=== PATIENT | female | born 1950 | race Caucasian/White ===

== ENCOUNTER 2018-09-16 06:50 | Observation (INO) ==
[2018-09-16] MEDS ORDERED: *HR* FentaNYL (PF) 100 MCG/2 ML VIAL ONE ×2 (07:15→09:02)
[2018-09-16] MEDS ORDERED: *HR* Midazolam HCl 2 MG/2 ML VIAL ONE (07:15)
[2018-09-16] MEDS ORDERED: Lidocaine -MPF 2% 2 ML VIAL ONE (07:15)
[2018-09-16] MEDS ORDERED: Ethanol\\Acetic Acid\\Na Ace\\Ben 1,000 ML IRRIG.SOLN IR ONE (07:30)
[2018-09-16] MEDS ORDERED: Albuterol 2.5 MG/3 ML NEBULIZER IH ONE (07:45)
[2018-09-16] MEDS ORDERED: Ringers Solution, Lactated 1,000 ML IVC SCH ×2 (07:45→11:21)
[2018-09-16] MEDS ORDERED: Clindamycin 900 MG/50 ML 900 MG/50 ML IV.SOLN IVPB ONE (07:45)
[2018-09-16] MEDS ORDERED: ROPIVACAINE/PF/NS 0.25% 1 EACH SYRINGE INTRAART ONE (07:53)
[2018-09-16] MEDS ORDERED: Gabapentin 300 MG CAPSULE PO ONE (08:01)
[2018-09-16] MEDS ORDERED: *HR* OxyCODONE ER (12 HR) 20 MG TABLET PO ONE (08:05)
[2018-09-16] MEDS ORDERED: *HR* OxyCODONE ER (12 HR) 10 MG TABLET PO ONE (08:15)
[2018-09-16] MEDS ORDERED: Ropivacaine/PF 0.5% 24.62 ML, EPINEPHrine 0.25 MG, Ketorolac 15 MG, Water for inj. (ste... IR ONE (08:35)
[2018-09-16] MEDS ORDERED: *HR* Propofol 200 MG/20 ML VIAL IVP ONE (08:41)
[2018-09-16] MEDS ORDERED: EPHEDrine 50 MG/ML VIAL ONE (08:52)
[2018-09-16] MEDS ORDERED: Tranexamic Acid 1,000 MG/10 ML VIAL ONE (08:52)
[2018-09-16] MEDS ORDERED: Ondansetron 4 MG/2 ML VIAL ONE (08:58)
[2018-09-16] MEDS ORDERED: Dexamethasone 4 MG/ML VIAL ONE (08:58)
[2018-09-16] MEDS ORDERED: *HR* HYDROMORPHONE 2 MG/ML VIAL ONE (09:17)
[2018-09-16 10:38] LABS: Hematocrit 42.2 % (35.3-44.9); Hemoglobin 13.7 g/dL (11.5-15.4)
[2018-09-16] MEDS ORDERED: Naloxone 0.4 MG/ML INJ IVP PRN (11:21)
[2018-09-16] MEDS ORDERED: Ondansetron 4 MG/2 ML VIAL IVP PRN (11:21)
[2018-09-16] MEDS ORDERED: MOM Conc 10 ML UD.LIQ PO PRN (11:21)
[2018-09-16] MEDS ORDERED: Clindamycin 900 MG/50 ML 900 MG/50 ML IV.SOLN IVPB SCH (11:21)
[2018-09-16] MEDS ORDERED: *HR* Promethazine 25 MG/ML VIAL IVP PRN (11:21)
[2018-09-16] MEDS ORDERED: Sennosides 8.6 MG TABLET PO PRN (11:21)
[2018-09-16] MEDS ORDERED: Temazepam 15 MG CAPSULE PO PRN (11:21)
[2018-09-16] MEDS: Ascorbic Acid 500 MG TABLET PO SCH ×2 (11:50→17:31)
[2018-09-16] MEDS: *HR* OxyCODONE Immed Rel 5 MG TABLET PO PRN ×2 (11:50→20:28)
[2018-09-16] MEDS: Multivit/Ca/Min/Fe/FA 1 TAB TABLET PO SCH (11:52)
[2018-09-16] MEDS: Clindamycin 900 MG/50 ML 900 MG/50 ML IV.SOLN IVPB SCH (17:29)
[2018-09-16] MEDS: Nicotine 21 MG PATCH.TD24 TD SCH (17:30)
[2018-09-16] MEDS: Gabapentin 300 MG CAPSULE PO SCH ×2 (17:31→21:08)
[2018-09-16] MEDS: *HR* Enoxaparin 30 MG/0.3 ML SYRINGE SQ SCH (17:35)
[2018-09-16] MEDS: traZODone 50 MG TABLET PO SCH (21:08)
[2018-09-16] MEDS: ALPRAZolam 1 MG TABLET PO PRN (21:35)
[2018-09-16] MEDS: HYDROcodone BIT/Homatropine 5 MG TABLET PO PRN (22:05)
[2018-09-17] MEDS: Clindamycin 900 MG/50 ML 900 MG/50 ML IV.SOLN IVPB SCH (00:02)
[2018-09-17] MEDS: *HR* Enoxaparin 30 MG/0.3 ML SYRINGE SQ SCH ×2 (05:31→17:16)
[2018-09-17 06:41] LABS: Basophils % 0.1 %; Eosinophils % 0.2 %; Hematocrit 37.3 % (35.3-44.9); Immature Granulocytes % 0.6 % (0-4); Lymphocytes # 1.6 K/mcL (0.6-4.6); Lymphocytes % 10.9 %; Mean Corpuscular HGB Conc 31.9 g/dL (31.6-35.5); Mean Corpuscular Hemoglobin 33.2 pg (28.0-33.3); Mean Corpuscular Volume 104.2 fL (83.0-100.0); Mean Platelet Volume 10.7 fL (9.4-12.4); Monocytes # 0.9 K/mcL (0.0-1.3); Monocytes % 6.4 %; Platelet Count 242 K/mcL (140-400); Red Blood Count 3.58 M/mcL (3.82-4.97); Red Cell Distribution Width 13.2 % (11.5-14.5); Segmented Neutrophils % 81.8 %; White Blood Count 14.6 K/mcL (4.3-11.1)
[2018-09-17 06:42] LABS: Hemoglobin 11.9 g/dL (11.5-15.4)
[2018-09-17 07:03] LABS: Calcium 9.8 mg/dL (8.6-10.3)
[2018-09-17] MEDS: HYDROcodone BIT/Homatropine 5 MG TABLET PO PRN (07:17)
[2018-09-17] MEDS: BuPROPion XL (24 HR) 150 MG TABLET PO SCH (08:56)
[2018-09-17] MEDS: Aspirin Enteric Coated 81 MG Tablet PO SCH (08:56)
[2018-09-17] MEDS: Metoprolol XL (24 HR) Succ 25 MG TAB.ER.24H PO SCH (08:56)
[2018-09-17] MEDS: Furosemide 40 MG TABLET PO SCH (08:57)
[2018-09-17] MEDS: Losartan/HCTZ 50-12.5 TABLET PO SCH ×2 (08:57→11:01)
[2018-09-17] MEDS: Nicotine 21 MG PATCH.TD24 TD SCH (08:57)
[2018-09-17] MEDS: Multivit/Ca/Min/Fe/FA 1 TAB TABLET PO SCH (08:57)
[2018-09-17] MEDS: Gabapentin 300 MG CAPSULE PO SCH ×3 (08:57→19:56)
[2018-09-17] MEDS: Ascorbic Acid 500 MG TABLET PO SCH ×2 (08:57→16:23)
[2018-09-17] MEDS ORDERED: BuPROPion XL (24 HR) 150 MG TABLET PO SCH (09:00)
[2018-09-17] MEDS ORDERED: NON-FORMULARY MEDICATION 1 EACH EACH (Multivitamin [One Daily Multivitamin] 1 TAB) PO SCH (09:00)
[2018-09-17] MEDS: *HR* OxyCODONE Immed Rel 5 MG TABLET PO PRN ×2 (11:01→17:16)
[2018-09-17] MEDS: ALPRAZolam 1 MG TABLET PO PRN (16:23)
[2018-09-17] MEDS: traZODone 50 MG TABLET PO SCH (19:56)
[2018-09-18] MEDS: *HR* OxyCODONE Immed Rel 5 MG TABLET PO PRN ×3 (01:23→14:49)
[2018-09-18 04:12] LABS: Hematocrit 35.9 % (35.3-44.9); Hemoglobin 11.5 g/dL (11.5-15.4); Mean Corpuscular Volume 103.2 fL (83.0-100.0); Mean Platelet Volume 10.5 fL (9.4-12.4); Platelet Count 242 K/mcL (140-400); Red Blood Count 3.48 M/mcL (3.82-4.97); Red Cell Distribution Width 13.3 % (11.5-14.5); White Blood Count 10.5 K/mcL (4.3-11.1)
[2018-09-18 04:25] LABS: Calcium 9.6 mg/dL (8.6-10.3); Potassium 4.3 mEq/L (3.5-5.1)
[2018-09-18 04:41] LABS: Eosinophils # 0.4 K/mcL (0.0-0.6); Lymphocytes # 1.9 K/mcL (0.6-4.6); Monocytes # 0.4 K/mcL (0.0-1.3); Neutrophils # 7.8 K/mcL (1.6-8.9)
[2018-09-18 04:42] LABS: Platelet Estimate Normal (Normal)
[2018-09-18] MEDS: *HR* Enoxaparin 30 MG/0.3 ML SYRINGE SQ SCH ×2 (05:45→17:43)
[2018-09-18] MEDS: Nicotine 21 MG PATCH.TD24 TD SCH (07:43)
[2018-09-18] MEDS: Metoprolol XL (24 HR) Succ 25 MG TAB.ER.24H PO SCH (07:44)
[2018-09-18] MEDS: Ascorbic Acid 500 MG TABLET PO SCH ×2 (07:44→17:41)
[2018-09-18] MEDS: BuPROPion XL (24 HR) 150 MG TABLET PO SCH (07:44)
[2018-09-18] MEDS: Aspirin Enteric Coated 81 MG Tablet PO SCH (07:44)
[2018-09-18] MEDS: Gabapentin 300 MG CAPSULE PO SCH ×3 (07:45→19:39)
[2018-09-18] MEDS: Losartan/HCTZ 50-12.5 TABLET PO SCH (07:45)
[2018-09-18] MEDS: Furosemide 40 MG TABLET PO SCH (07:45)
[2018-09-18] MEDS: Multivit/Ca/Min/Fe/FA 1 TAB TABLET PO SCH (07:45)
[2018-09-18] MEDS ORDERED: Ipratropium/Albuterol Neb 3 ML IH ONE (07:48)
[2018-09-18] MEDS: ALPRAZolam 1 MG TABLET PO PRN ×3 (09:57→23:15)
[2018-09-18] MEDS ORDERED: 0.9 % Sodium Chloride 500 ML IVC SCH (17:00)
[2018-09-18] MEDS ORDERED: 0.9 % Sodium Chloride 500 ML IVC ONE (18:45)
[2018-09-18] MEDS: traZODone 50 MG TABLET PO SCH (19:39)
[2018-09-18] MEDS: Ipratropium/Albuterol Neb 3 ML IH SCH (22:58)
[2018-09-19] MEDS: *HR* Enoxaparin 30 MG/0.3 ML SYRINGE SQ SCH (04:57)
[2018-09-19 07:03] LABS: BUN/Creatinine Ratio 30 (6-26); Blood Urea Nitrogen 27 mg/dL (8-23); Calcium 9.3 mg/dL (8.6-10.3); Carbon Dioxide 34 mEq/L (23-29); Chloride 102 mEq/L (98-107); Glucose 119 mg/dL (70-105); Osmolality,Calculated 302 (280-300); Sodium 143 mEq/L (136-145); eGFR For African Americans > 60 (> 60); eGFR For Non-African Americans > 60 (> 60)
[2018-09-19] MEDS: Ipratropium/Albuterol Neb 3 ML IH SCH ×2 (07:39→16:37)
[2018-09-19] MEDS: Nicotine 21 MG PATCH.TD24 TD SCH (08:06)
[2018-09-19] MEDS: Losartan/HCTZ 50-12.5 TABLET PO SCH (08:07)
[2018-09-19] MEDS: BuPROPion XL (24 HR) 150 MG TABLET PO SCH (08:07)
[2018-09-19] MEDS: Furosemide 40 MG TABLET PO SCH (08:08)
[2018-09-19] MEDS: Aspirin Enteric Coated 81 MG Tablet PO SCH (08:08)
[2018-09-19] MEDS: ALPRAZolam 1 MG TABLET PO PRN ×2 (08:08→15:32)
[2018-09-19] MEDS: Multivit/Ca/Min/Fe/FA 1 TAB TABLET PO SCH (08:08)
[2018-09-19] MEDS: Gabapentin 300 MG CAPSULE PO SCH ×2 (08:08→15:32)
[2018-09-19] MEDS: Metoprolol XL (24 HR) Succ 25 MG TAB.ER.24H PO SCH (08:09)
[2018-09-19] MEDS: Ascorbic Acid 500 MG TABLET PO SCH ×2 (08:10→15:32)
[2018-09-19] MEDS: *HR* OxyCODONE Immed Rel 5 MG TABLET PO PRN ×2 (08:10→15:32)
[2018-09-19 12:54] VITALS: BP 131/76
== END 2018-09-19 16:15 | disposition home health service (06) ==
LOC: SAMDAY 06:50 → 3NENU 06:50
PROVIDERS: ADMIT Orthopaedic Surgery; ATTEND Orthopaedic Surgery